=== PATIENT | male | born 1950 | race Caucasian/White ===

== ENCOUNTER 2024-07-24 09:02 | Inpatient (IN) ==
[2024-07-24] MEDS ORDERED: Norepinephrine 4 MG/250mL D5W 4,000 MCG/250 ML BAG IV ONE (09:20)
[2024-07-24] MEDS: Norepinephrine 4 MG/250mL D5W 4,000 MCG/250 ML BAG IV SCH (09:23)
[2024-07-24] MEDS: LACTATED RINGERS SEPSIS IV ONE (09:27)
[2024-07-24 09:34] LABS: Hematocrit 34.9 % (38-53); Hemoglobin 11.3 g/dL (13.2-16.3); Mean Corpuscular Hemoglobin 26.6 pg (27-33); Mean Corpuscular Hgb Conc 32.5 g/dL (31-36); Mean Corpuscular Volume 81.9 fL (80-97); Red Blood Count 4.26 10^6/uL (4.06-5.63); White Blood Count 11.5 10^3/uL (3.6-10.2)
[2024-07-24] MEDS: Piperacillin/Tazobac 3.375 BAG 3.375 GM/100 ML BAG IV ONE (09:36)
[2024-07-24] MEDS: methylPREDNISolone SOD SUCC 125 mg 2 ML VIAL IV ONE (09:36)
[2024-07-24 09:39] LABS: Activated Partial Thrombo Time 31.2 seconds (26.0-38.0); INR 1.25 (0.85-1.14)
[2024-07-24 09:53] LABS: High Sens Troponin Baseline 122 pg/mL (<20)
[2024-07-24 10:06] LABS: ABS Basophils 0.1 10^3/uL (0.0-0.1); ABS Lymphocytes 0.6 10^3/uL (1.0-4.8); ABS Monocytes 0.7 10^3/uL (0.0-1.1); ABS Neutrophils 10.1 10^3/uL (1.5-7.6); ABS Nucleated RBC 0.01 10^3/ul; Eosinophil % 0.4 %; Lymphocyte % 5.3 %; Mean Platelet Volume 10.7 fL (7.5-11.2); Nucleated Red Blood Cells % 0.1 %/100WBC (0.0-0.8); Platelet Count 69 10^3/uL (150-450)
[2024-07-24] MEDS: Acetaminophen IV 1 GM/100ML 1,000 MG/100 ML BAG IV ONE (10:22)
[2024-07-24] MEDS: Vancomycin 1,000 MG in NS 0.9% 250 ml 250 ML IVPB ONE (10:26)
[2024-07-24 10:28] LABS: Blood Urea Nitrogen > 120 mg/dL (6-24)
[2024-07-24 10:39] LABS: CO2 Carbon Dioxide 15 mmol/L (22-32); Calcium 7.7 mg/dL (8.6-10.3); Chloride 99 mmol/L (101-111); Creatinine, Serum 7.26 mg/dL (0.67-1.17); Glucose 106 mg/dL (70-100); Sodium 133 mmol/L (135-145); eGFR CKD-EPI 7.3 (>60)
[2024-07-24 10:40] LABS: ALT 17 U/L (7-52); Albumin 2.9 g/dL (3.2-5.2); Alkaline Phosphatase 117 U/L (35-149); C Reactive Protein 229.98 mg/L (<8.01); Globulin 2.9 g/dL (2-4); Total Bilirubin 0.6 mg/dL (0.2-1.0); Total Protein 5.8 g/dL (6.4-8.9)
[2024-07-24 10:44] LABS: Urine Appearance Extra Turbid; Urine Bacteria 1+ /HPF (Absent); Urine Bilirubin Negative (Negative); Urine Blood 3+ (Negative); Urine Color Light-Orange; Urine Glucose Negative (Negative); Urine Ketones Negative (Negative); Urine Nitrite Negative (Negative); Urine Protein 2+ (>=100 mg/dL) (Negative); Urine Red Blood Cell 3+(>10/hpf) /HPF (0-Trace); Urine Specific Gravity 1.015 (1.002-1.030); Urine Squamous Epithelial Cell Present /HPF (Absent); Urine Transitional Epithelial Present /HPF (Absent); Urine Urobilinogen Negative (Negative); Urine White Blood Cell 3+(>20/hpf) /HPF (0-Trace)
[2024-07-24 11:01] LABS: Anion Gap 19 mmol/L (2-16)
[2024-07-24 11:02] LABS: High Sensitivity Troponin 1 Hr 64 pg/mL (<20)
[2024-07-24] MEDS: Lactated Ringers 1000 ml BAG 1,000 ML IV ONE (11:13)
[2024-07-24] MEDS: Amiodarone 150 mg IVPREMIX 150 MG/100 ML BAG IV ONE ×2 (12:48→12:57)
[2024-07-24] MEDS: .Amiodarone 24HR ONLY IV Protocol Order Note IV ONE (12:57)
[2024-07-24 12:58] LABS: Potassium Redraw 4.1 mmol/L (3.5-5.0)
[2024-07-24] MEDS: Lactated Ringers 1000 ml BAG 500 ML IV ONE (13:02)
[2024-07-24] MEDS: Amiodarone 360 MG IVPREMIX 360 MG/200 ML BAG IV SCH (13:10)
[2024-07-24 13:20] LABS: Magnesium 1.8 mg/dL (1.9-2.7); Phosphorus 3.6 mg/dL (2.5-5.0)
[2024-07-24 14:25] LABS: ABS Lymphocytes 0.3 10^3/uL (1.0-4.8); ABS Monocytes 0.4 10^3/uL (0.0-1.1); ABS Neutrophils 16.8 10^3/uL (1.5-7.6); ABS Nucleated RBC 0.01 10^3/ul; Eosinophil % 0.1 %; Hematocrit 29.6 % (38-53); Hemoglobin 9.5 g/dL (13.2-16.3); Lymphocyte % 1.5 %; Mean Corpuscular Hemoglobin 25.9 pg (27-33); Mean Corpuscular Hgb Conc 31.9 g/dL (31-36); Mean Corpuscular Volume 81.1 fL (80-97); Mean Platelet Volume 10.5 fL (7.5-11.2); Platelet Count 71 10^3/uL (150-450); Red Blood Count 3.65 10^6/uL (4.06-5.63); Red Cell Distribution Width 17.7 % (12-17); White Blood Count 17.6 10^3/uL (3.6-10.2)
[2024-07-24] MEDS: Heparin DRIP 25,000 UNITS BAG 25,000 UNITS/250 ML BAG IV SCH (14:33)
[2024-07-24] MEDS: Heparin 5000 UNITS/ML 1 mL VIAL IV SCH (14:34)
[2024-07-24] MEDS: cefTRIAXone 1 gm/50 mL D5W 1 GM/50 ML BAG IV SCH (14:47)
[2024-07-24 15:16] LABS: Blood Urea Nitrogen > 120 mg/dL (6-24)
[2024-07-24 15:19] LABS: ALT 15 U/L (7-52); AST 15 U/L (13-39); Albumin 2.5 g/dL (3.2-5.2); Albumin/Globulin Ratio 1.1 (1-3); Alkaline Phosphatase 103 U/L (35-149); Anion Gap 16 mmol/L (2-16); CO2 Carbon Dioxide 15 mmol/L (22-32); Calcium 7.3 mg/dL (8.6-10.3); Chloride 102 mmol/L (101-111); Creatinine, Serum 6.21 mg/dL (0.67-1.17); Globulin 2.3 g/dL (2-4); Glucose 170 mg/dL (70-100); Potassium 4.1 mmol/L (3.5-5.0); Sodium 133 mmol/L (135-145); Total Bilirubin 0.7 mg/dL (0.2-1.0); Total Protein 4.8 g/dL (6.4-8.9); eGFR CKD-EPI 8.8 (>60)
[2024-07-24] MEDS: Metoprolol Tartrate 5 mg VIAL 5 ml VIAL (1 mg/ml) IV ONE (16:48)
[2024-07-24] MEDS ORDERED: Amiodarone 360 MG IVPREMIX 360 MG/200 ML BAG IV SCH (19:00)
[2024-07-24] MEDS: Magnesium Sulfate 2 gm BAG 2 GM/50 ML BAG IVPB ONE (19:22)
[2024-07-25 08:00] LABS: Hematocrit 31.1 % (38-53); Hemoglobin 10.1 g/dL (13.2-16.3); Mean Corpuscular Hemoglobin 26.3 pg (27-33); Mean Corpuscular Hgb Conc 32.6 g/dL (31-36); Mean Corpuscular Volume 80.8 fL (80-97); Red Blood Count 3.85 10^6/uL (4.06-5.63); Red Cell Distribution Width 18.1 % (12-17); White Blood Count 17.5 10^3/uL (3.6-10.2)
[2024-07-25 08:46] LABS: Blood Urea Nitrogen > 120 mg/dL (6-24)
[2024-07-25 08:48] LABS: ABS Lymphocytes 0.4 10^3/uL (1.0-4.8); ABS Monocytes 0.4 10^3/uL (0.0-1.1); ABS Neutrophils 16.6 10^3/uL (1.5-7.6); Lymphocyte % 2.3 %; Mean Platelet Volume 11.7 fL (7.5-11.2); Platelet Count 56 10^3/uL (150-450)
[2024-07-25] MEDS: Metoprolol Tartrate 5 mg VIAL 5 ml VIAL (1 mg/ml) IV PRN (08:52)
[2024-07-25 08:55] LABS: ALT 14 U/L (7-52); AST 14 U/L (13-39); Albumin 2.7 g/dL (3.2-5.2); Alkaline Phosphatase 117 U/L (35-149); Anion Gap 19 mmol/L (2-16); CO2 Carbon Dioxide 16 mmol/L (22-32); Calcium 7.8 mg/dL (8.6-10.3); Chloride 101 mmol/L (101-111); Creatinine, Serum 6.08 mg/dL (0.67-1.17); Globulin 2.7 g/dL (2-4); Glucose 189 mg/dL (70-100); Magnesium 2.5 mg/dL (1.9-2.7); Potassium 3.8 mmol/L (3.5-5.0); Sodium 136 mmol/L (135-145); Total Bilirubin 0.4 mg/dL (0.2-1.0); Total Protein 5.4 g/dL (6.4-8.9); eGFR CKD-EPI 9.1 (>60)
[2024-07-25] MEDS: Sulfur Hexaflouride MICROSPHR 25 MG VIAL IV PRN (11:40)
[2024-07-25] MEDS: Lactated Ringers 1000 ml BAG 500 ML IV ONE (13:50)
[2024-07-25] MEDS: cefTRIAXone 2 gm/50 mL D5W 2 GM/50 ML BAG IV SCH (14:26)
[2024-07-25] MEDS: cefTRIAXone 1 gm/50 mL D5W 1 GM/50 ML BAG IV SCH (15:12)
[2024-07-25] MEDS: cefTRIAXone 1 gm/50 mL D5W 1 GM/50 ML BAG IV ONE (16:49)
[2024-07-25 18:05] LABS: Anion Gap 18 mmol/L (2-16); CO2 Carbon Dioxide 15 mmol/L (22-32); Calcium 7.4 mg/dL (8.6-10.3); Chloride 103 mmol/L (101-111); Creatinine, Serum 5.82 mg/dL (0.67-1.17); Glucose 194 mg/dL (70-100); Potassium 3.7 mmol/L (3.5-5.0); Sodium 136 mmol/L (135-145); eGFR CKD-EPI 9.5 (>60)
[2024-07-25 18:28] LABS: Blood Urea Nitrogen > 120 mg/dL (6-24)
[2024-07-25] MEDS: Sodium Bicarb 8.4% Vial 50 ML 100 MEQ in D5W 1000 ml BAG 1,000 ML IV SCH (19:50)
[2024-07-26 00:46] LABS: Anion Gap 16 mmol/L (2-16); CO2 Carbon Dioxide 16 mmol/L (22-32); Calcium 7.2 mg/dL (8.6-10.3); Chloride 102 mmol/L (101-111); Creatinine, Serum 5.59 mg/dL (0.67-1.17); Glucose 220 mg/dL (70-100); Potassium 3.5 mmol/L (3.5-5.0); Sodium 134 mmol/L (135-145)
[2024-07-26 01:33] LABS: Blood Urea Nitrogen > 120 mg/dL (6-24)
[2024-07-26 04:57] LABS: Hematocrit 25.3 % (38-53); Hemoglobin 8.3 g/dL (13.2-16.3); Mean Corpuscular Hemoglobin 26.5 pg (27-33); Mean Corpuscular Hgb Conc 32.9 g/dL (31-36); Mean Corpuscular Volume 80.7 fL (80-97); Red Blood Count 3.14 10^6/uL (4.06-5.63); Red Cell Distribution Width 17.7 % (12-17); White Blood Count 6.8 10^3/uL (3.6-10.2)
[2024-07-26 06:31] LABS: Anion Gap 15 mmol/L (2-16); CO2 Carbon Dioxide 18 mmol/L (22-32); Calcium 7.3 mg/dL (8.6-10.3); Chloride 102 mmol/L (101-111); Creatinine, Serum 5.31 mg/dL (0.67-1.17); Glucose 179 mg/dL (70-100); Magnesium 2.3 mg/dL (1.9-2.7); Potassium 3.3 mmol/L (3.5-5.0); Sodium 135 mmol/L (135-145); eGFR CKD-EPI 10.7 (>60)
[2024-07-26 06:41] LABS: ABS Lymphocytes 0.3 10^3/uL (1.0-4.8); ABS Monocytes 0.2 10^3/uL (0.0-1.1); ABS Neutrophils 6.2 10^3/uL (1.5-7.6); Lymphocyte % 4.7 %; Mean Platelet Volume 10.4 fL (7.5-11.2); Platelet Count 37 10^3/uL (150-450)
[2024-07-26 07:00] LABS: Blood Urea Nitrogen > 120 mg/dL (6-24)
[2024-07-26 08:48] LABS: ABS Lymphocytes 0.3 10^3/uL (1.0-4.8); ABS Monocytes 0.2 10^3/uL (0.0-1.1); ABS Neutrophils 6.7 10^3/uL (1.5-7.6); Hematocrit 25.2 % (38-53); Hemoglobin 8.5 g/dL (13.2-16.3); Lymphocyte % 4.6 %; Mean Corpuscular Hemoglobin 27.2 pg (27-33); Mean Corpuscular Hgb Conc 33.8 g/dL (31-36); Mean Corpuscular Volume 80.6 fL (80-97); Mean Platelet Volume 11.3 fL (7.5-11.2); Platelet Count 39 10^3/uL (150-450); Red Blood Count 3.12 10^6/uL (4.06-5.63); Red Cell Distribution Width 17.7 % (12-17); White Blood Count 7.2 10^3/uL (3.6-10.2)
[2024-07-26] MEDS: KCL 20 MEQ/100 ML IVPREMIX 20 MEQ/100 ML BAG IV SCH (09:24)
[2024-07-26 09:53] LABS: Blood Urea Nitrogen > 120 mg/dL (6-24)
[2024-07-26 09:54] LABS: Anion Gap 14 mmol/L (2-16); CO2 Carbon Dioxide 20 mmol/L (22-32); Calcium 7.2 mg/dL (8.6-10.3); Chloride 101 mmol/L (101-111); Creatinine, Serum 5.15 mg/dL (0.67-1.17); Glucose 160 mg/dL (70-100); Potassium 3.4 mmol/L (3.5-5.0); Sodium 135 mmol/L (135-145)
[2024-07-26] MEDS: cefTRIAXone 2 gm/50 mL D5W 2 GM/50 ML BAG IV SCH (15:47)
[2024-07-26] MEDS: Lactated Ringers 1000 ml BAG 500 ML IV ONE (18:13)
[2024-07-27 05:28] LABS: ABS Lymphocytes 0.2 10^3/uL (1.0-4.8); ABS Monocytes 0.3 10^3/uL (0.0-1.1); ABS Neutrophils 6.6 10^3/uL (1.5-7.6); Hematocrit 27.1 % (38-53); Lymphocyte % 3.4 %; Mean Corpuscular Hemoglobin 27.1 pg (27-33); Mean Corpuscular Hgb Conc 33.4 g/dL (31-36); Mean Corpuscular Volume 81.2 fL (80-97); Mean Platelet Volume 11.2 fL (7.5-11.2); Platelet Count 49 10^3/uL (150-450); Red Blood Count 3.34 10^6/uL (4.06-5.63); Red Cell Distribution Width 17.5 % (12-17); White Blood Count 7.2 10^3/uL (3.6-10.2)
[2024-07-27 06:06] LABS: Calcium 7.4 mg/dL (8.6-10.3); Creatinine, Serum 4.16 mg/dL (0.67-1.17); Potassium 4.2 mmol/L (3.5-5.0); eGFR CKD-EPI 14.3 (>60)
[2024-07-27 12:04] VITALS: BP 115/65
== END 2024-07-27 14:15 | disposition home or self-care (01) | DRG 871 ==
LOC: ED 09:02 → ICU 11:23
PROVIDERS: ADMIT Student in an Organized Health Care Education/Training Program; ATTEND Student in an Organized Health Care Education/Training Program

== ENCOUNTER 2024-08-22 08:51 | Inpatient (IN) ==
[2024-08-22] MEDS: LACTATED RINGERS SEPSIS IV ONE (10:55)
[2024-08-22 11:28] LABS: Albumin 2.4 g/dL (3.2-5.2); Albumin/Globulin Ratio 0.7 (1-3); Calcium 7.3 mg/dL (8.6-10.3); Creatinine, Serum 1.81 mg/dL (0.67-1.17); Globulin 3.4 g/dL (2-4); Total Bilirubin 0.4 mg/dL (0.2-1.0); Total Protein 5.8 g/dL (6.4-8.9); eGFR CKD-EPI 38.8 (>60)
[2024-08-22] MEDS: Piperacillin/Tazobac 3.375 BAG 3.375 GM/100 ML BAG IV ONE (11:38)
[2024-08-22 11:47] LABS: ABS Basophils 0.1 10^3/uL (0.0-0.1); ABS Eosinophils 0.1 10^3/uL (0.0-0.5); ABS Lymphocytes 0.7 10^3/uL (1.0-4.8); ABS Monocytes 0.6 10^3/uL (0.0-1.1); ABS Neutrophils 9.9 10^3/uL (1.5-7.6); Eosinophil % 1.2 %; Hematocrit 16.3 % (38-53); Mean Corpuscular Hemoglobin 24.8 pg (27-33); Mean Corpuscular Hgb Conc 30.9 g/dL (31-36); Mean Corpuscular Volume 80.1 fL (80-97); Mean Platelet Volume 7.2 fL (7.5-11.2); Platelet Count 371 10^3/uL (150-450); Red Blood Count 2.03 10^6/uL (4.06-5.63); Red Cell Distribution Width 17.6 % (12-17); White Blood Count 11.3 10^3/uL (3.6-10.2)
[2024-08-22 12:21] LABS: High Sensitivity Troponin 1 Hr 30 pg/mL (<20)
[2024-08-22] MEDS: Pantoprazole VIAL 40 MG VIAL IV ONE (12:59)
[2024-08-22] MEDS: Prothrombin Complex Conc. DOSE = Units Factor IX (nine) IV SLOW PU ONE (13:58)
[2024-08-22] MEDS ORDERED: Zosyn per Pharmacy NOTE FOLLOW UP SCH (15:00)
[2024-08-22 15:18] LABS: Urine Appearance Turbid; Urine Bilirubin Negative (Negative); Urine Blood Trace (Negative); Urine Color Light-Yellow; Urine Glucose Negative (Negative); Urine Ketones Negative (Negative); Urine Nitrite 2+ (Negative); Urine Protein 1+ (>=30 mg/dL) (Negative); Urine Specific Gravity 1.014 (1.002-1.030); Urine Urobilinogen Negative (Negative)
[2024-08-22 15:28] LABS: Urine Bacteria 3+ /HPF (Absent); Urine Red Blood Cell 2+(6-10/hpf) /HPF (0-Trace); Urine White Blood Cell 3+(>20/hpf) /HPF (0-Trace)
[2024-08-22] MEDS: Acetaminophen IV 1 GM/100ML 1,000 MG/100 ML BAG IV SCH (15:43)
[2024-08-22 16:50] LABS: PCO2 Arterial 30 mmHg (35-45); PO2 Arterial 80 mmHg (80-100)
[2024-08-22] MEDS: ZOSYN 3.375 GM Q8H per EXTENDED INFUSION IV SCH ×2 (16:56→23:59)
[2024-08-22] MEDS: Lactated Ringers 1000 ml BAG 1,000 ML IV ONE (19:00)
[2024-08-22] MEDS: Pantoprazole VIAL 40 MG VIAL IV SCH (19:56)
[2024-08-22] MEDS: NS 0.9% 1000 ml BAG 1,000 ML IV SCH (19:59)
[2024-08-22 20:58] LABS: Hematocrit 21.2 % (38-53); Hemoglobin 6.6 g/dL (13.2-16.3)
[2024-08-23 03:11] LABS: Hematocrit 22.7 % (38-53); Hemoglobin 7.3 g/dL (13.2-16.3)
[2024-08-23 05:54] LABS: ABS Eosinophils 0.1 10^3/uL (0.0-0.5); ABS Lymphocytes 0.7 10^3/uL (1.0-4.8); ABS Monocytes 0.5 10^3/uL (0.0-1.1); ABS Neutrophils 8.8 10^3/uL (1.5-7.6); Eosinophil % 0.8 %; Lymphocyte % 7.3 %; Mean Corpuscular Hemoglobin 26.3 pg (27-33); Mean Corpuscular Hgb Conc 31.7 g/dL (31-36); Mean Corpuscular Volume 82.7 fL (80-97); Mean Platelet Volume 7.6 fL (7.5-11.2); Platelet Count 364 10^3/uL (150-450); Red Blood Count 2.83 10^6/uL (4.06-5.63); Red Cell Distribution Width 17.5 % (12-17); White Blood Count 10.1 10^3/uL (3.6-10.2)
[2024-08-23 07:33] LABS: Creatinine, Serum 1.69 mg/dL (0.67-1.17); Magnesium 1.8 mg/dL (1.9-2.7); Potassium 4.3 mmol/L (3.5-5.0); eGFR CKD-EPI 42.1 (>60)
[2024-08-23] MEDS: cefTRIAXone 2 gm/50 mL D5W 2 GM/50 ML BAG IV SCH (08:35)
[2024-08-23] MEDS ORDERED: Furosemide 40 mg/4 ml IV VIAL ONE (09:12)
[2024-08-23] MEDS ORDERED: fentaNYL 100 mcg/2 ml 50 MCG/ML VIAL ONE (10:06)
[2024-08-23] MEDS ORDERED: Midazolam 5 mg/5 ml VIAL 1 mg/ml 5 ml VIAL (5 mg) ONE (10:06)
[2024-08-23] MEDS: Furosemide 20 mg/2 ml IV VIAL IV SLOW PU ONE (10:12)
[2024-08-23] MEDS: Magnesium Sulfate 2 gm BAG 2 GM/50 ML BAG IVPB ONE (11:59)
[2024-08-23 13:35] VITALS: BP 102/63
== END 2024-08-23 19:50 | disposition left against medical advice (07) | DRG 872 ==
LOC: EDHOLD 08:51 → ED 08:51 → OBSVTOIN 14:04 → MED 16:33
PROVIDERS: ADMIT Internal Medicine; ATTEND Internal Medicine